=== PATIENT | male | born 1965 | race Caucasian/White ===

== ENCOUNTER 2017-01-04 13:23 | Emergency (ER) | payer MEDICARE, OTHER ==
[~2017-01-04] VITALS: Ht 180.3 cm; Wt 92.0 kg
[~2017-01-04 13:23] MED LIST: ARIP1TAB5 PO; OCUVTAB4 PO; TRAZ50TA12 PO
[2017-01-04 13:31] VITALS: BP 140/86; PULSE 81; RESP 16; TEMP 98.3; O2SAT 95
[2017-01-04] MEDS ORDERED: OCUVTAB4 PO (13:37)
[2017-01-04] MEDS ORDERED: AMBI5TAB PO (13:37)
[2017-01-04] MEDS ORDERED: TIMO0.2517 LEFT EYE (13:38)
[2017-01-04] MEDS ORDERED: PERI0.126 SWISH-SPIT (13:56)
--- NOTE | 2017-01-04 13:57 | PD ---
HPI Chief Complaint: Oral / Dental Pain or Problem Time Seen by Provider: 13:44 Travel History International Travel<30 days: No Contact w/Intl Traveler<30days: No Traveled to known affect area: No History of Present Illness HPI The patient is a 51-year-old male who presents to the emergency department with his brother for bruising of the tongue. The patient states he bit his tongue approximately one week ago while chewing. The patient is blind out of the left eye, has partial vision of the right eye, after cataract surgery in the 1960s. The patient states he bit his tongue on the left, anterior, and right aspect of the tongue one week ago. He continues have mild sensitivity to left lateral aspect of the tongue. The brother states there does appear to be bruising and possibly infection the left side of his tongue. He does note some sensitivity to certain foods with eating, but denies any fever. Symptoms are mild, exacerbated after he accidentally bit his tongue, and there are no current alleviating factors. PFSH Past Medical History Diminished Hearing: No Schizophrenia: Yes Tetanus Vaccination: Unknown Influenza Vaccination: No Past Surgical History Tonsillectomy: Yes Social History Alcohol Use: No Tobacco Use: No Substance Use: No Allergies-Medications (Allergen,Severity, Reaction): Coded Allergies: No Known Allergies (Unverified , 01/04/17) Reported Meds & Prescriptions Reported Meds & Active Scripts Active Abilify (Aripiprazole) 10 Mg Tab 10 Mg PO DAILY Reported Timolol Maleate (Timolol Maleate (Ophth)) 0.25 % Kimber 1 Drop LEFT EYE BID Ambien (Zolpidem Tartrate) 5 Mg Tab 5 Mg PO HS PRN Preservision Areds (Multiple Vitamins W/ Minerals) 1 Tab 1 Tab PO DAILY Review of Systems General / Constitutional: No: Fever Eyes: Positive: Blindness HENT: Positive: Other (as noted in the history of present illness) Neurologic: No: Seizures (no history of seizures) Hematologic/Lymphatic: Positive: Other (takes no anticoagulants), No: Easy Bruising Physical Exam Narrative GENERAL: Awake, alert, pleasant 51-year-old male who appears his stated age and is in no acute respiratory distress. SKIN: Focused skin assessment warm/dry. HEAD: Atraumatic. Normocephalic. EYES: Blind out of the left eye. Right pupil is irregular, he is able to see my hand at a distance of 2 feet. ENT: Hematoma/ecchymosis noted over the lateral aspect of the tongue on the left and right as well as anterior aspect. Mild irregularly to the left aspect of the tongue, but no acute bleeding. NECK: Trachea midline. No JVD. MUSCULOSKELETAL: No obvious deformities. No clubbing. No cyanosis. No edema. NEUROLOGICAL: Awake and alert. No obvious cranial nerve deficits. Motor grossly within normal limits. Normal speech. PSYCHIATRIC: Appropriate mood and affect; insight and judgment normal. Data Data Last Documented VS Vital Signs Date Time Temp Pulse Resp B/P Pulse Ox O2 Delivery O2 Flow Rate FiO2 01/04/17 13:31 98.3 81 16 140/86 95 MDM Medical Decision Making Medical Screen Exam Complete: Yes Emergency Medical Condition: Yes Medical Record Reviewed: Yes Differential Diagnosis Differential diagnosis includes laceration, hematoma, ecchymosis, hairy tongue, ulcer. Narrative Course The patient appears to have small hematomas and ecchymosis to the tongue, but does have some irregularity to left lateral tongue, therefore, the patient will be placed on Peridex. He is advised to follow-up with his primary physician and /or dentist if symptoms persist. Diagnosis Primary Impression: Tongue injury Qualified Code: S09.93XA - Injury of tongue, initial encounter Patient Instructions: General Instructions Additional Instructions: Peridex as directed. Follow-up with your primary physician and/or dentist. Diet as tolerated. Med/Other Pt SpecificInfo: Prescription(s) given Scripts Chlorhexidine Gluconate (Mouth) Liq (Peridex Liq)0.12% Soln15 Ml SWISH-SPIT BID #473 ML Ref 0 Prov:Sung Hawthorne MD 01/04/17 Disposition: 01 DISCHARGE HOME Condition: Stable Sung Hawthorne MD Jan 04, 2017 13:56
== END 2017-01-04 14:19 | disposition home or self-care (01) ==
LOC: PHED 13:23
DX: S00.532A Contusion of oral cavity, initial encounter (principal); X58.XXXA Exposure to other specified factors, initial encounter
CPT/HCPCS: 99283

== ENCOUNTER 2017-01-10 11:05 | Emergency (ER) | payer MEDICARE, MEDICAID ==
[~2017-01-10] VITALS: Ht 180.3 cm; Wt 90.0 kg
[~2017-01-10 11:05] MED LIST changes: +AMBI5TAB PO; +PERI0.126 SWISH-SPIT; +TIMO0.2517 LEFT EYE; -TRAZ50TA12 PO
[2017-01-10 11:09] VITALS: BP 137/83; PULSE 70; RESP 16; TEMP 98.3; O2SAT 97
--- NOTE | 2017-01-10 11:56 | PD ---
HPI Chief Complaint: ENT Complaint Time Seen by Provider: 11:53 Travel History International Travel<30 days: No Contact w/Intl Traveler<30days: No Traveled to known affect area: No History of Present Illness HPI 51-year-old male presents to the emergency room for evaluation of left ear pain for the past 2 days. Patient's mother applied [id number] ear cleaning solution yesterday without relief in symptoms. He has not taken anything for his pain. Denies drainage, fever, chills, nausea, vomiting, or other upper respiratory symptoms. History of schizophrenia and glaucoma but denies any other significant history. Denies any recent swimming. PFSH Past Medical History Diminished Hearing: No Immunizations Current: Yes Schizophrenia: Yes Tetanus Vaccination: > 5 Years Influenza Vaccination: No Past Surgical History Eye Surgery: Yes (cataracts removed) Tonsillectomy: Yes Social History Alcohol Use: No Tobacco Use: No Substance Use: No Allergies-Medications (Allergen,Severity, Reaction): Coded Allergies: No Known Allergies (Unverified , 01/10/17) Reported Meds & Prescriptions Reported Meds & Active Scripts Active Abilify (Aripiprazole) 10 Mg Tab 10 Mg PO DAILY Reported Timolol Maleate (Timolol Maleate (Ophth)) 0.25 % Kimber 1 Drop LEFT EYE BID Ambien (Zolpidem Tartrate) 5 Mg Tab 5 Mg PO HS PRN Preservision Areds (Multiple Vitamins W/ Minerals) 1 Tab 1 Tab PO DAILY Review of Systems Except as stated in HPI: all other systems reviewed are Neg Physical Exam Narrative GENERAL: Well-nourished, well-developed male in no acute distress. Afebrile. Ambulatory. Resting comfortably in bed. SKIN: Focused skin assessment warm/dry. HEAD: Normocephalic. EYES: No scleral icterus. No injection or drainage. NECK: Supple, trachea midline. No JVD or lymphadenopathy. EARS: Bilateral pinnae and external canals appear within normal limits. Bilateral tympanic membranes without erythema, dullness or perforation. CARDIOVASCULAR: Regular rate and rhythm without murmurs, gallops, or rubs. RESPIRATORY: Breath sounds equal bilaterally. No accessory muscle use. Data Data Last Documented VS Vital Signs Date Time Temp Pulse Resp B/P Pulse Ox O2 Delivery O2 Flow Rate FiO2 01/10/17 11:09 98.3 70 16 137/83 97 MDM Medical Decision Making Medical Screen Exam Complete: Yes Emergency Medical Condition: Yes Medical Record Reviewed: Yes Differential Diagnosis Otitis media, otitis externa, eustachian tube dysfunction Narrative Course 51-year-old male presents to the emergency room for evaluation of left ear pain for the past 2 days. Patient denies fever, drainage, or other upper respiratory symptoms. Physical exam is unremarkable. Bilateral ear canals and tympanic membranes are without evidence of acute infection. Patient was reassured and told to take osfs-rmo-dnclwqe antihistamines and intranasal medications for eustachian tube dysfunction. Told to take jksc-huu-evkdgko Tylenol and Motrin for pain. He will follow up with primary care physician or return for worsening symptoms. He understands and agrees to plan. Diagnosis Primary Impression: Eustachian tube dysfunction Qualified Code: H69.82 - Dysfunction of left eustachian tube Referrals: Primary Care Physician Patient Instructions: Eustachian Tube Dysfunction (GEN), General Instructions Additional Instructions: Rest and drink plenty of fluids. Take pnme-dlg-hdeulkf antihistamines and intranasal medications as directed. Take ibuprofen with food as directed, as needed for pain. Follow-up with a primary care physician. Return to the emergency room for worsening symptoms. Disposition: 01 DISCHARGE HOME Condition: Stable Sue Lujan Jan 10, 2017 11:56
== END 2017-01-10 12:20 | disposition home or self-care (01) ==
LOC: PHEFT 11:05
DX: H69.82 Other specified disorders of Eustachian tube, left ear (principal); Z86.59 Personal history of other mental and behavioral disorders; Z86.69 Personal history of other diseases of the nervous system and sense organs
CPT/HCPCS: 99282

== ENCOUNTER 2017-03-25 11:30 | Inpatient (IN) | payer MEDICARE, MEDICAID ==
[~2017-03-25] VITALS: Ht 182.9 cm; Wt 99.0 kg
[~2017-03-25 11:30] MED LIST changes: -PERI0.126 SWISH-SPIT
[2017-03-25 11:44] VITALS: BP 137/83; PULSE 103; RESP 18; O2SAT 98
[2017-03-25] MEDS ORDERED: SODIUM CHLORIDE 0.9% FLUSH 10 ML FLUSH IVF PRN (11:45)
--- NOTE | 2017-03-25 12:23 | RADRPT ---
EXAM DATE/TIME: 03/25/2017 12:02 [facility] COMPARISON: No previous studies available for comparison. INDICATIONS : New onset seizure. Head trauma. RADIATION DOSE: 56.35 CTDIvol (mGy) MEDICAL HISTORY : None SURGICAL HISTORY : None. ENCOUNTER: Initial ACUITY: 1 day PAIN SCALE: 4/10 LOCATION: cranial TECHNIQUE: Multiple contiguous axial images were obtained of the head. Using automated exposure control and adj ustment of the mA and/or kV according to patient size, radiation dose was kept as low as reasonably a chievable to obtain optimal diagnostic quality images. DICOM format image data is available electro nically for review and comparison. FINDINGS: CEREBRUM: The ventricles are normal for age. No evidence of midline shift, mass lesion, hemorrhage or acute in farction. No extra-axial fluid collections are seen. POSTERIOR FOSSA: The cerebellum and brainstem are intact. The 4th ventricle is midline. The cerebellopontine angle i s unremarkable. EXTRACRANIAL: The visualized portion of the orbits is intact. 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 SKULL: The calvaria is intact. No evidence of skull fracture. CONCLUSION: Unremarkable noncontrast exam. Derik Prabhakar MD on March 25, 2017 at 12:20 Board Certified Radiologist. This report was verified electronically.
--- NOTE | 2017-03-25 12:32 | PD ---
HPI Chief Complaint: Seizure Time Seen by Provider: 11:40 Travel History International Travel<30 days: No Contact w/Intl Traveler<30days: No Traveled to known affect area: No History of Present Illness HPI This is a 52-year-old male with history of schizophrenia, legal blindness, who presents from the [facility] after having a seizure. The patient is unable to give any history. The patient has no known seizure disorder. Family friend is at the bedside states that he takes Abilify and Ambien. There was concern that he may have switched the 2 medications. The patient was reportedly having tonic-clonic seizures prior to the EMS arrival. When EMS arrived, they found the patient to be postictal. He had had urinary incontinence and possibly stool incontinence. The patient was unable to answer questions and appeared to be still postictal. PFSH Past Medical History Diminished Hearing: No Insomnia: Yes Immunizations Current: Yes Schizophrenia: Yes Past Surgical History Eye Surgery: Yes (cataracts removed, blind ) Tonsillectomy: Yes Social History Alcohol Use: No Tobacco Use: No Substance Use: No Allergies-Medications (Allergen,Severity, Reaction): Coded Allergies: No Known Allergies (Unverified , 01/10/17) Reported Meds & Prescriptions Reported Meds & Active Scripts Active Abilify (Aripiprazole) 10 Mg Tab 10 Mg PO DAILY Reported Timolol Maleate (Timolol Maleate (Ophth)) 0.25 % Kimber 1 Drop LEFT EYE BID Ambien (Zolpidem Tartrate) 5 Mg Tab 5 Mg PO HS PRN Preservision Areds (Multiple Vitamins W/ Minerals) 1 Tab 1 Tab PO DAILY Review of Systems ROS Limitations: Clinical Condition, Altered Mental Status Except as stated in HPI: all other systems reviewed are Neg HENT: Positive: Other (reported legally blind) Neurologic: Positive: Seizures (reported) Physical Exam Narrative GENERAL: Well-developed well-nourished male in no acute respiratory distress. The patient was postictal and mildly combative. SKIN: Focused skin assessment warm/dry. HEAD: Normocephalic. Patient has a stellate laceration to his mid forehead. There is no active bleeding at the time my examination. EYES: No scleral icterus. No injection or drainage. ENT: No nasal bleeding or discharge. Mucous membranes pink and moist. NECK: Trachea midline. Supple. CARDIOVASCULAR: Regular rate and rhythm. No murmur appreciated. RESPIRATORY: No accessory muscle use. Clear to auscultation. Breath sounds equal bilaterally. GASTROINTESTINAL: Abdomen soft, non-tender, nondistended. Hepatic and splenic margins not palpable. MUSCULOSKELETAL: No obvious deformities. No clubbing. No cyanosis. No edema. NEUROLOGICAL: Awake and postictal. No obvious cranial nerve deficits. Motor grossly within normal limits. Data Data Last Documented VS Vital Signs Date Time Temp Pulse Resp B/P (MAP) Pulse Ox O2 Delivery O2 Flow Rate FiO2 03/25/17 13:40 98.7 76 16 140/83 (102) 96 Room Air 03/25/17 13:36 21 Orders Orders Complete Blood Count With Diff (03/25/17 11:41) Electrocardiogram (03/25/17 ) Ct Brain W/O Iv Contrast(Rout) (03/25/17 ) Blood Glucose (03/25/17 11:41) Ecg Monitoring (03/25/17 11:41) Iv Access Insert/Monitor (03/25/17 11:41) Oximetry (03/25/17 11:41) Comprehensive Metabolic Panel (03/25/17 11:41) Sodium Chloride 0.9% Flush (Ns Flush) (03/25/17 11:45) Ct Cerv Spine W/O Contrast (03/25/17 11:41) Lidocai-Epi 2%-1:100,000 Inj (Xylocaine- (03/25/17 12:45) Admit To Inpatient (03/25/17 ) Vital Signs (Adult) Q4H (03/25/17 13:28) Neuro Checks Q4H (03/25/17 13:28) Activity Bed Rest (03/25/17 13:28) Ediphone Operator / Telemetry .CONTINUOUS (03/25/17 13:28) Diet Regular Basic (03/25/17 Lunch) Sodium Chloride 0.9% Flush (Ns Flush) (03/25/17 21:00) Acetaminophen (Tylenol) (03/25/17 13:30) Ondansetron Inj (Zofran Inj) (03/25/17 13:30) Basic Metabolic Panel (Bmp) (03/26/17 06:00) Complete Blood Count With Diff (03/26/17 06:00) Resp Oxygen Corey C Titrat 1-4 L (03/25/17 ) Pt Request For Service (03/25/17 13:28) Scd Bilateral/Knee High DAYANA.BID (03/25/17 13:28) Xavier Bilateral/Knee High DAYANA.QSHIFT (03/25/17 13:28) Naloxone Inj (Narcan Inj) (03/25/17 13:30) Docusate Sodium-Senna (Lizbeth-Colace) (03/25/17 21:00) Magnesium Hydroxide Liq (Milk Of Magnesi (03/25/17 13:30) Sennosides (Senokot) (03/25/17 13:30) Bisacodyl Supp (Dulcolax Supp) (03/25/17 13:30) Lactulose Liq (Lactulose Liq) (03/25/17 13:30) Inpatient Certification (03/25/17 ) ^ Seizure Precautions (03/25/17 13:28) Consult Neurology (03/25/17 ) (Hub Use Only)Inp Phy Cons/Ref (03/25/17 ) Admit Order (Ed Use Only) (03/25/17 14:06) Labs Laboratory Tests Test 03/25/17 12:00 White Blood Count 19.1 TH/MM3 Red Blood Count 5.18 MIL/MM3 Hemoglobin 15.2 GM/DL Hematocrit 44.5 % Mean Corpuscular Volume 85.9 FL Mean Corpuscular Hemoglobin 29.2 PG Mean Corpuscular Hemoglobin Concent 34.0 % Red Cell Distribution Width 13.9 % Platelet Count 178 TH/MM3 Mean Platelet Volume 8.4 FL Neutrophils (%) (Auto) 85.0 % Lymphocytes (%) (Auto) 9.0 % Monocytes (%) (Auto) 5.7 % Eosinophils (%) (Auto) 0.2 % Basophils (%) (Auto) 0.1 % Neutrophils # (Auto) 16.3 TH/MM3 Lymphocytes # (Auto) 1.7 TH/MM3 Monocytes # (Auto) 1.1 TH/MM3 Eosinophils # (Auto) 0.0 TH/MM3 Basophils # (Auto) 0.0 TH/MM3 CBC Comment DIFF FINAL Differential Comment Blood Urea Nitrogen 8 MG/DL Creatinine 0.97 MG/DL Random Glucose 126 MG/DL Total Protein 7.1 GM/DL Albumin 4.0 GM/DL Calcium Level 8.6 MG/DL Alkaline Phosphatase 133 U/L Aspartate Amino Transf (AST/SGOT) 22 U/L Alanine Aminotransferase (ALT/SGPT) 33 U/L Total Bilirubin 0.6 MG/DL Sodium Level 134 MEQ/L Potassium Level 3.3 MEQ/L Chloride Level 99 MEQ/L Carbon Dioxide Level 20.9 MEQ/L Anion Gap 14 MEQ/L Estimat Glomerular Filtration Rate 81 ML/MIN MDM Medical Decision Making Medical Screen Exam Complete: Yes Emergency Medical Condition: Yes Differential Diagnosis Seizure versus syncope versus metabolic derangement Narrative Course 52-year-old male who has a history of schizophrenia, legally blind, presents after having a witnessed tonic-clonic activity at the [facility]. The patient is unable to give history. He was postictal when he arrived. Patient has a laceration to his mid forehead. This is been closed by GRACIE Moon. The patient had another witnessed tonic-clonic seizure while in the department just before he was leaving to go to special procedures. He was medicated with [address] IV[address] Dr[address] Navarrete, neurologist, was made aware of the seizure. He recommended we load the patient with 1 g of Keppra. This was passed on to the admitting physician, Dr. Jacky Morrison as the patient had left the department prior to this information. Diagnosis Primary Impression: New onset seizure Additional Impressions: Forehead laceration Qualified Codes: S01.81XD - Laceration without foreign body of other part of head, subsequent encounter Closed head injury Qualified Codes: S09.90XD - Unspecified injury of head, subsequent encounter Legally blind schizophrenia by history Admitting Information Admitting Physician Requests: Admit Scripts Nngqmxcr-Dxpupyhnteoancj-Jnswdfdet Liq (Magic Mouthwash Adult Liq) 120 Ml Susp 10 ML SWISH-SWAL ACHS for Mouth sores, #120 ML 0 Refills Each 5mL contains: Nystatin 200,000units, Diphenhydramine 4.25mg, Viscous Lidocaine 10mg, Go syrup 0.8 mL Prov: Bailey Giraldo 03/27/17 Chlorhexidine Gluconate (Mouth) Liq (Peridex Liq) 0.12% Soln 15 ML SWISH-SPIT BID for Infection, #473 ML 0 Refills Prov: Bailey Giraldo 03/27/17 Levetiracetam (Keppra) 500 Mg Tab 500 MG PO Q12HR for Seizure Control for 30 Days, #60 TAB Prov: Bailey Giraldo 03/27/17 Uriah Elizabeth MD Mar 25, 2017 12:32
--- NOTE | 2017-03-25 12:35 | RADRPT ---
EXAM DATE/TIME: 03/25/2017 12:02 [facility] COMPARISON: No previous studies available for comparison. INDICATIONS : Trauma, seizure today. RADIATION DOSE: 37.75 CTDIvol (mGy) MEDICAL HISTORY : None SURGICAL HISTORY : Tonsillectomy. ENCOUNTER: Initial ACUITY: 1 day PAIN SCALE: 4/10 LOCATION: neck TECHNIQUE: Volumetric scanning of the cervical spine was performed. Multiplanar reconstructions i n the sagittal, coronal and oblique axial planes were performed. Using automated exposure control a nd adjustment of the mA and/or kV according to patient size, radiation dose was kept as low as reason ably achievable to obtain optimal diagnostic quality images. DICOM format image data is available e lectronically for review and comparison. FINDINGS: The sagittal reconstructions demonstrate normal alignment and normal prevertebral soft tissues. The d ens is intact and there is a normal atlantoaxial relationship. Degenerative disc changes are present at the C6-7 level. The axial images demonstrate that the vertebral bodies and posterior elements are intact. The soft ti ssues are within normal limits. There is no evidence of acute fracture or malalignment. CONCLUSION: Negative trauma CT. Derik Prabhakar MD on March 25, 2017 at 12:32 Board Certified Radiologist. This report was verified electronically.
[2017-03-25 12:43] LABS: AUTOMATED NEUTROPHIL # 16.3 TH/MM3 (1.8-7.7); BASOPHIL % 0.1 % (0.0-2.0); EOSINOPHIL % 0.2 % (0.0-4.0); HEMATOCRIT 44.5 % (39.0-51.0); HEMO FLAGS DIFF FINAL; LYMPHOCYTE # 1.7 TH/MM3 (1.0-4.8); MEAN CELL VOLUME 85.9 FL (80.0-100.0); MEAN CORPUSCULAR HEMOGLOBIN 29.2 PG (27.0-34.0); MONO % 5.7 % (0.0-8.0); PLATELET COUNT 178 TH/MM3 (150-450); RED BLOOD COUNT 5.18 MIL/MM3 (4.50-5.90); RED CELL DISTRIBUTION WIDTH 13.9 % (11.6-17.2); WHITE BLOOD COUNT 19.1 TH/MM3 (4.0-11.0)
[2017-03-25] MEDS ORDERED: LIDOCAINE 2%/EPINEPHrine 1:100,000 20ML MDV NERV BLOCK ONE (12:45)
[2017-03-25 13:02] LABS: ALT (GPT) 33 U/L (12-78); ANION GAP 14 MEQ/L (5-15); AST (GOT) 22 U/L (15-37); BICARBONATE 20.9 MEQ/L (21.0-32.0); BLOOD UREA NITROGEN 8 MG/DL (7-18); CHLORIDE 99 MEQ/L (98-107); GLOMERULAR FILTRATION RATE 81 ML/MIN (>89); POTASSIUM 3.3 MEQ/L (3.5-5.1); SODIUM (NA) 134 MEQ/L (136-145)
[2017-03-25 13:04] LABS: ALKALINE PHOSPHATASE 133 U/L (45-117); TOTAL BILIRUBIN ADULT 0.6 MG/DL (0.2-1.0)
--- NOTE | 2017-03-25 13:26 | PD ---
Physical Exam Narrative I was asked by Dr. Elizabeth to repair patient's laceration. Please see his documentation for full H&P. Data Data Last Documented VS Vital Signs Date Time Temp Pulse Resp B/P (MAP) Pulse Ox O2 Delivery O2 Flow Rate FiO2 03/25/17 11:47 104 03/25/17 11:46 (101) Room Air 03/25/17 11:44 18 98 Orders Orders Complete Blood Count With Diff (03/25/17 11:41) Electrocardiogram (03/25/17 ) Ct Brain W/O Iv Contrast(Rout) (03/25/17 ) Blood Glucose (03/25/17 11:41) Ecg Monitoring (03/25/17 11:41) Iv Access Insert/Monitor (03/25/17 11:41) Oximetry (03/25/17 11:41) Comprehensive Metabolic Panel (03/25/17 11:41) Sodium Chloride 0.9% Flush (Ns Flush) (03/25/17 11:45) Ct Cerv Spine W/O Contrast (03/25/17 11:41) Lidocai-Epi 2%-1:100,000 Inj (Xylocaine- (03/25/17 12:45) Labs Laboratory Tests Test 03/25/17 12:00 White Blood Count 19.1 TH/MM3 Red Blood Count 5.18 MIL/MM3 Hemoglobin 15.2 GM/DL Hematocrit 44.5 % Mean Corpuscular Volume 85.9 FL Mean Corpuscular Hemoglobin 29.2 PG Mean Corpuscular Hemoglobin Concent 34.0 % Red Cell Distribution Width 13.9 % Platelet Count 178 TH/MM3 Mean Platelet Volume 8.4 FL Neutrophils (%) (Auto) 85.0 % Lymphocytes (%) (Auto) 9.0 % Monocytes (%) (Auto) 5.7 % Eosinophils (%) (Auto) 0.2 % Basophils (%) (Auto) 0.1 % Neutrophils # (Auto) 16.3 TH/MM3 Lymphocytes # (Auto) 1.7 TH/MM3 Monocytes # (Auto) 1.1 TH/MM3 Eosinophils # (Auto) 0.0 TH/MM3 Basophils # (Auto) 0.0 TH/MM3 CBC Comment DIFF FINAL Differential Comment Blood Urea Nitrogen 8 MG/DL Creatinine 0.97 MG/DL Random Glucose 126 MG/DL Total Protein 7.1 GM/DL Albumin 4.0 GM/DL Calcium Level 8.6 MG/DL Alkaline Phosphatase 133 U/L Aspartate Amino Transf (AST/SGOT) 22 U/L Alanine Aminotransferase (ALT/SGPT) 33 U/L Total Bilirubin 0.6 MG/DL Sodium Level 134 MEQ/L Potassium Level 3.3 MEQ/L Chloride Level 99 MEQ/L Carbon Dioxide Level 20.9 MEQ/L Anion Gap 14 MEQ/L Estimat Glomerular Filtration Rate 81 ML/MIN MDM Supervised Visit with SEAN: No Procedures Procedure Narrative LACERATION REPAIR LOCATION: Forehead LENGTH: Approximately 5.5 cm in total length Y-shaped NUMBER OF STITCHES/MIGUELINA: 11 simple interrupted REPAIR: Verbal consent was obtained. The area of the laceration was cleaned and prepped. The laceration was infiltrated with lidocaine with epi. The wound was copiously irrigated and explored without evidence of foreign body, bony involvement, periosteum injury, or neurovascular injury. The wound was closed using 5-0 Vicryl. This was a single layer repair. The patient was advised to keep the affected area as clean and dry as possible using soap and water. There were no complications. Patient tolerated the procedure well. Woody Dukes Mar 25, 2017 13:26
[2017-03-25] MEDS ORDERED: NALOXONE HCL 0.4 MG/ML AMP IV PUSH PRN (13:30)
[2017-03-25] MEDS ORDERED: BISACODYL 10 MG SUPP RECTAL PRN (13:30)
[2017-03-25] MEDS ORDERED: SENNOSIDES 8.6 MG TAB PO PRN (13:30)
[2017-03-25] MEDS ORDERED: MAGNESIUM HYDROXIDE SUSP 30 ML CUP PO PRN (13:30)
[2017-03-25] MEDS ORDERED: LACTULOSE SYRUP 20 GM/30 ML CUP PO PRN (13:30)
[2017-03-25] MEDS ORDERED: ACETAMINOPHEN 325 MG TAB PO PRN (13:30)
[2017-03-25] MEDS ORDERED: ONDANSETRON HCL 4 MG/2 ML VIAL IVP PRN (13:30)
[2017-03-25] MEDS ORDERED: SODIUM CHLORIDE 0.9% FLUSH 10 ML FLUSH IV FLUSH PRN (13:30)
[2017-03-25 13:36] VITALS: O2SAT 96
[2017-03-25 13:40] VITALS: BP 140/83; PULSE 76; RESP 16; TEMP 98.7; O2SAT 96
--- NOTE | 2017-03-25 14:18 | HHI.HP ---
HPI Service [facility] Hospitalists Primary Care Physician Amanda Almeida, DO Admission Diagnosis new onset seizure, forehead laceration, schizophrenia, legally blind Diagnoses: Chief Complaint: New onset seizure Travel History International Travel<30 Days: No Contact w/Intl Traveler <30 Da: No Traveled to Known Affected Are: No History of Present Illness Written by Bailey Giraldo, acting as scribe for Dr. Morrison on 03/25/17 at 14:14. This is a 52-year-old with a past medical history significant for glaucoma, macular degeneration, legal blindness and schizophrenia who presents to [facility] ED after having a seizure. Patient has no previous history of seizure disorder. Reportedly, patient was participating in a blind class when he had a tonic-clonic seizure injuring his head as well as biting his tongue. When the EMS arrived, patient was found to be post ictal. He had urinary incontinence and possible stool incontinence. At present, patient's only complaint is being tired. He reports being completely blind in the left eye with some vision in the right. He denies any recent illness. He denies any fever or chills. Denies any chest pain or shortness of breath. He denies any nausea, vomiting or abdominal pain. He denies any urinary difficulties, diarrhea or constipation. Patient takes Abilify and Ambien at home. Family member at the bedside is concerned the patient may have inadvertently taken his Ambien this morning in place of his Abilify. Review of Systems Except as stated in HPI: all other systems reviewed are Neg Past Family Social History Past Medical History Glaucoma Macular degeneration Legally blind Schizophrenia Past Surgical History Retinal surgery Reported Medications Abilify (Aripiprazole) 10 Mg Tab 10 Mg PO DAILY Timolol Maleate (Timolol Maleate (Ophth)) 0.25 % Kimber 1 Drop LEFT EYE BID Ambien (Zolpidem Tartrate) 5 Mg Tab 5 Mg PO HS PRN Preservision Areds (Multiple Vitamins W/ Minerals) 1 Tab 1 Tab PO DAILY Allergies: Coded Allergies: No Known Allergies (Unverified , 01/10/17) Active Ordered Medications Current Medications Medications (Trade) Dose Ordered Sig/Hayley Route Start Time Stop Time Status Last Admin (NS Flush) 2 ml UNSCH PRN IVF 03/25/17 11:45 03/25/17 12:25 (NS Flush) 2 ml BID IV FLUSH 03/25/17 21:00 (Tylenol) 650 mg Q4H PRN PO 03/25/17 13:30 (Zofran Inj) 4 mg Q6H PRN IVP 03/25/17 13:30 (Narcan Inj) 0.4 mg UNSCH PRN IV PUSH 03/25/17 13:30 (Lizbeth-Colace) 1 tab BID PO 03/25/17 21:00 (Milk Of Magnesia Liq) 30 ml Q12H PRN PO 03/25/17 13:30 (Senokot) 17.2 mg Q12H PRN PO 03/25/17 13:30 (Dulcolax Supp) 10 mg DAILY PRN RECTAL 03/25/17 13:30 (Lactulose Liq) 30 ml DAILY PRN PO 03/25/17 13:30 Family History Macular degeneration, Mother Social History Patient denies any tobacco use, EtOH consumption or illicit drug use. Physical Exam Vital Signs Vital Signs Date Time Temp Pulse Resp B/P (MAP) Pulse Ox O2 Delivery O2 Flow Rate FiO2 03/25/17 13:40 76 16 140/83 (102) 96 Room Air 03/25/17 13:36 96 21 03/25/17 11:47 104 03/25/17 11:46 (101) Room Air 03/25/17 11:44 103 18 137/83 (101) 98 Room Air Physical Exam GENERAL: This is a well-nourished, well-developed patient, in no apparent distress. SKIN: No rashes, ecchymoses or lesions. Cool and dry. HEAD: Normocephalic. (+)closed laceration over anterior forehead with sutures intact, surrounding ecchymosis. Nasal contusion noted. EYES: Pupils equal round and reactive. Extraocular motions intact. No scleral icterus. No injection or drainage. ENT: Nose without bleeding, purulent drainage or septal hematoma. Throat without erythema, tonsillar hypertrophy or exudate. Uvula midline. (+)tongue contusion, no active bleeding. Airway patent. NECK: Trachea midline. No lymphadenopathy. Supple, nontender, no meningeal signs. CARDIOVASCULAR: Regular rate and rhythm without murmurs, gallops, or rubs. RESPIRATORY: Clear to auscultation. Breath sounds equal bilaterally. No wheezes , rales, or rhonchi. GASTROINTESTINAL: Abdomen soft, non-tender, nondistended. No hepato-splenomegaly , or palpable masses. No guarding. MUSCULOSKELETAL: Extremities without clubbing, cyanosis, or edema. No joint tenderness, effusion, or edema noted. No calf tenderness. NEUROLOGICAL: Awake and alert. Able to move all extremities. Nonfocal. Normal speech. Laboratory Laboratory Tests Test 03/25/17 12:00 White Blood Count 19.1 Red Blood Count 5.18 Hemoglobin 15.2 Hematocrit 44.5 Mean Corpuscular Volume 85.9 Mean Corpuscular Hemoglobin 29.2 Mean Corpuscular Hemoglobin Concent 34.0 Red Cell Distribution Width 13.9 Platelet Count 178 Mean Platelet Volume 8.4 Neutrophils (%) (Auto) 85.0 Lymphocytes (%) (Auto) 9.0 Monocytes (%) (Auto) 5.7 Eosinophils (%) (Auto) 0.2 Basophils (%) (Auto) 0.1 Neutrophils # (Auto) 16.3 Lymphocytes # (Auto) 1.7 Monocytes # (Auto) 1.1 Eosinophils # (Auto) 0.0 Basophils # (Auto) 0.0 CBC Comment DIFF FINAL Differential Comment Blood Urea Nitrogen 8 Creatinine 0.97 Random Glucose 126 Total Protein 7.1 Albumin 4.0 Calcium Level 8.6 Alkaline Phosphatase 133 Aspartate Amino Transf (AST/SGOT) 22 Alanine Aminotransferase (ALT/SGPT) 33 Total Bilirubin 0.6 Sodium Level 134 Potassium Level 3.3 Chloride Level 99 Carbon Dioxide Level 20.9 Anion Gap 14 Estimat Glomerular Filtration Rate 81 Result Diagram: 03/25/17 1200 03/25/17 1200 Imaging Last Impressions Cervical Spine CT 03/25/17 1141 Signed Impressions: Service Date/Time: February 12:02 - CONCLUSION: Negative trauma CT. Derik Prabhakar MD Head CT 03/25/17 0000 Signed Impressions: Service Date/Time: February 12:02 - CONCLUSION: Unremarkable noncontrast exam. MD Roxanna Gutierres VTE Risk Assessment Caprini VTE Risk Assessment: No/Low Risk (score <= 1) Caprini Risk Assessment Model Point Value = 1 Point Value = 2 Point Value = 3 Point Value = 5 Age 41-60 Minor surgery BMI > 25 kg/m2 Swollen legs Varicose veins or History of unexplained or recurrent spontaneous Oral contraceptives or hormone replacement Sepsis (< 1 month) Serious lung disease, including pneumonia (< 1 month) Abnormal pulmonary function Acute myocardial infarction Congestive heart failure (< 1 month) History of inflammatory bowel disease Medical patient at bed rest Age 61-74 Arthroscopic surgery Major open surgery (> 45 min) Laparoscopic surgery (> 45 min) Malignancy Confined to bed (> 72 hours) Immobilizing plaster cast Central venous access Age >= 75 History of VTE Family history of VTE Factor V Leiden Prothrombin [id number] Lupus anticoagulant Anticardiolipin antibodies Elevated serum homocysteine Heparin-induced thrombocytopenia Other congenital or acquired thrombophilia Stroke (< 1 month) Elective arthroplasty Hip, pelvis, or leg fracture Acute spinal cord injury (< 1 month) Prophylaxis Regimen Total Risk Factor Score Risk Level Prophylaxis Regimen 0-1 Low Early ambulation 2 Moderate Order ONE of the following: *Sequential Compression Device (SCD) *Heparin 5000 units SQ BID 3-4 Higher Order ONE of the following medications: *Heparin 5000 units SQ TID *Enoxaparin/Lovenox 40 mg SQ daily (WT < 150 kg, CrCl > 30 mL/min) *Enoxaparin/Lovenox 30 mg SQ daily (WT < 150 kg, CrCl > 10-29 mL/min) *Enoxaparin/Lovenox 30 mg SQ BID (WT < 150 kg, CrCl > 30 mL/min) AND/OR *Sequential Compression Device (SCD) 5 or more Highest Order ONE of the following medications: *Heparin 5000 units SQ TID (Preferred with Epidurals) *Enoxaparin/Lovenox 40 mg SQ daily (WT < 150 kg, CrCl > 30 mL/min) *Enoxaparin/Lovenox 30 mg SQ daily (WT < 150 kg, CrCl > 10-29 mL/min) *Enoxaparin/Lovenox 30 mg SQ BID (WT < 150 kg, CrCl > 30 mL/min) AND *Sequential Compression Device (SCD) Assessment and Plan Assessment and Plan 52-year-old with a past medical history significant for glaucoma, macular degeneration, legal blindness and schizophrenia who presents to [facility] ED after having a seizure. New-onset seizure - CT of the head personally reviewed and unremarkable - Consult neurology - LP as requested by Dr. Navarrete. Follow-up on fluid analysis. - Continuous cardiac monitoring - Bedrest - Neuro checks every 4 - EEG - Seizure precautions - Fall precautions - Hold home dose of Abilify and Ambien for now Forehead laceration s/p closed head trauma - CT of the cervical spine personally reviewed and unremarkable - Status post suturing with absorbable sutures - Monitor wound healing Leukocytosis - Uncertain etiology, possibly reactive - Follow-up on LP fluid studies - monitor Hypokalemia - Mild - Replete - A.m. labs to monitor response Legal blindness Glaucoma Macular degeneration - Stable - Resume home eyedrops Schizophrenia - Hold home dose of Ambien and Abilify for now DVT prophylaxis - bilateral SCD/SELENA hose This note was transcribed by ninoska Giraldo. I, Dr. Jacky Morrison personally performed the history, physical exam, and medical decision making; and confirmed the accuracy of the information in the transcribed note. Authenticated by Dr. Jacky Morrison on 03/25/17 at 14:49. Discussed Condition With Patient, family members, ED physician Physician Certification 2 Midnight Certification Type: Admission for Inpatient Services Order for Inpatient Services The services are ordered in accordance with Medicare regulations or non- Medicare payer requirements, as applicable. In the case of services not specified as inpatient-only, they are appropriately provided as inpatient services in accordance with the 2-midnight benchmark. Estimated LOS (days): 3 3 days is the estimated time the patient will need to remain in the hospital, assuming treatment plan goals are met and no additional complications. Post-Hospital Plan: Not yet determined Bailey Giraldo Mar 25, 2017 14:18 Jacky Morrison MD Mar 25, 2017 14:49
[2017-03-25] MEDS: NS + KCL 20 MEQ INJ 1,000 ML IV SCH (15:38)
[2017-03-25 16:02] LABS: PROTHROMBIN TIME - PATIENT 10.7 SEC (9.8-11.6)
[2017-03-25] MEDS ORDERED: LORazepam 2 MG/ML VIAL ONE (16:04)
[2017-03-25] MEDS ORDERED: LORazepam 2 MG/ML VIAL IV PUSH ONE (16:30)
--- NOTE | 2017-03-25 16:32 | MG ---
cc: FRANDY GREENE M.D. Lab No: [id number] Date: 03/25/2017 Age: 52 Sex: M Race: DATE OF : [address] Morrison. In room E54, awake, drowsy, asleep study with photic only. CT was negative. Admitted with tonic-clonic seizure prior to EMS arrival, postictal, possible incontinence. History of schizophrenia, insomnia, on Ambien, Abilify and Timelol. DESCRIPTION OF RECORD The patient has a 3-4 Hz background. Noted to be snoring, some myogenic artifact as well. Do not appreciate any epileptic activity. Some wiggling of the feet but there is no correlation with any epileptiform features during that portion. Photic stimulation with a mild driving response. IMPRESSION Mild to moderate background slowing consistent with encephalopathic process without any epileptiform features. Clinical correlation. MD ROLANDO Medina/DARY /3:44 PM /4:23 PM
[2017-03-25 16:35] VITALS: BP 162/86
--- NOTE | 2017-03-25 17:04 | MB ---
cc: KIM MUIR MD DATE OF CONSULTATION 03/25/17 REASON FOR CONSULTATION Seizure. HISTORY OF PRESENT ILLNESS Mr. Yu is a 52-year-old male with past medical history of schizophrenia, legally blind who presented to the [facility] emergency room because of a witnessed seizure. He was witnessed to have tonic -clonic seizures, when he arrived to the emergency room at [facility], he was in a postictal confusional state with double incontinence. During the evaluation, mother and two family members were at the bedside.The patient states that the last thing he remembers he was in blind school. He denies any headache, blurred vision, racing heart prior to the episode. He has no recollection from that time until after he woke up in the hospital. He denies any contact with the sick or any recent febrile of illness. He takes Abilify and Ambien. PAST MEDICAL HISTORY 1. Schizophrenia 2. Insomnia 3. Blindness. PAST SURGICAL HISTORY 1. Cataract 2. Tonsillectomy SOCIAL HISTORY Denies alcohol, tobacco or illicit drug abuse. ALLERGIES No known allergies. MEDICATIONS 1. Timolol 2. Ambien. 3. Abilify REVIEW OF SYSTEMS A 12-point review of systems was negative except for what is stated in the HPI. PHYSICAL EXAMINATION GENERAL: Awake, alert, oriented, good historian in mild distress HEENT: Bilateral nystagmus/surgical pupil, finger count/light perception on the right. Intact hearing. No signs of meningeal irritation. Forehead laceration s/p fall CHEST: Clear to auscultation. No wheezes. ABDOMEN: Soft, nontender EXTREMITIES:No edema. Hands bilateral questionable cyanosis and clubbing in fingers. NEUROLOGIC: Awake, alert, oriented to time, person and place. No dysarthria, no dysphagia. Bilateral horizontal nystagmus. Right pupil surgical. Light perception. No facial asymmetry. Laceration of the forehead. Upper and lower extremities 5/5. No abnormal movements. Normal cerebellar function, intact sensation Reflexes 2+ bilateral symmetrical. Plantars are bilaterally downgoing. PSYCHIATRIC: Cooperative. No hallucinations. LABORATORY DATA WBC 19.1, hemoglobin 15.2, platelet count 178, 85% neutrophilia. Sodium 134, potassium 3.3, carbon dioxide 20.9, BUN 0.79 elevated GFR 8.1, glucose 126, ALK Ph 133. IMAGING STUDIES - Head CT scan unremarkable for an acute intracranial abnormality. IMPRESSION AND PLAN 1. New onset seizure 2. History of schizophrenia. 3. Legally blind - Clinical Counseling: A lengthy discussion with the family was conducted , I explained to the mother and the family member that the patient needs to have lumbar puncture performed to rule out the possibility of encephalitis given the elevated white blood cells even though it can be secondary to the seizure; to give the patient the benefit of the doubt with the low grade fever warm body and first seizure, negative CT scan. The patient and family PLAN: - Neuro checks q. one hourly - Seizure precautions - Keppra 750bid - Lumbar puncture, chemistry, protein, glucose, cytology. Viral and bacterial culture studies. 9. Continue medical supportive therapy, replenish electrolytes 10. DVT prophylaxis. 11. GI prophylaxis. 12. Continue home medications. 13. The case is discussed with the emergency physician, Dr. Uriah Elizabeth. Thank you for the opportunity to participate in the care of your patient. MD NAYELY Catalan/ /2:34 PM /4:46 PM LILI
--- NOTE | 2017-03-25 17:16 | PD.RAD ---
Post Procedure Progress Note Pre Procedure Diagnosis: (1) Seizure Post Procedure Diagnosis: (1) Seizure Procedure Date: Mar 25, 2017 Supervising Radiologist: Burak Pyle Estimated blood loss: none Anesthesia: Local, Conscious Sedation Plan of Activity Patient to Unit: ROPU Patient Condition: Poor Additional Comments: LP completed without difficulty. Opening pressure 13 17cc of clear CSF collected. See PACS Report for procedural detail/treatment Burak yPle MD Mar 25, 2017 17:15
[2017-03-25 17:30] VITALS: BP 127/75; PULSE 98; RESP 18; TEMP 99.3; O2SAT 100
--- NOTE | 2017-03-25 17:42 | RADRPT ---
EXAM DATE/TIME: 03/25/2017 16:54 [facility] COMPARISON: No previous studies available for comparison. INDICATIONS : Patient with recent seizure in need of lumbar puncture with opening pressures. MEDICAL HISTORY : 1.Seizures 2.Glaucoma 3.Macular degeneration 4.Legally blind 5.Schizophrenia SURGICAL HISTORY : 1.Retinal surgery ENCOUNTER: Initial ACUITY: 1 day PAIN SCORE: Non-responsive LUMBAR PUNCTURE TIME: 1707 hours FLUORO TIME: 0.5 minutes IMAGE SERIES: 1 ACCESS LEVEL: L4-5 OPENING PRESSURE: 12 cm of water CLOSING PRESSURE: Not requested. FLUID: 17 cc of clear CSF was collected and sent to the laboratory for analysis. PROCEDURE : 1. Fluoroscopic guided lumbar puncture. 2. Recording of opening pressure. The risks, benefits and alternatives to the procedure were explained and verbal and written consent w as obtained. The site was prepped in sterile fashion. Full sterile technique was used, including ca p, mask, sterile gloves and gown and a large sterile sheet. Hand hygiene and 2% chlorhexidine and/or betadine/alcohol prep was utilized per protocol for cutaneous antisepsis. The skin and subcutaneous tissues were infiltrated with local anesthetic solution. With fluoroscopic guidance the lumbar thecal sac was punctured at the L4/L5 level and the opening pre ssure was recorded. The above described fluid was removed without difficulty. The patient tolerated the procedure well and there were no complications. CONCLUSION: Uncomplicated fluoroscopically guided lumbar puncture with pressures as above. Burak Pyle MD on March 25, 2017 at 17:40 Board Certified Radiologist. This report was verified electronically.
[2017-03-25] MEDS: levETIRAcetam 1000 MG INJ 100 ML IV ONE ×2 (18:08→18:09)
[2017-03-25 19:04] LABS: GROSS BLOOD TUBE #1 0 (0); GROSS BLOOD TUBE #2 0 (0); GROSS BLOOD TUBE #3 0 (0); GROSS BLOOD TUBE #4 0 (0); SUPERNATE COLOR TUBE #1 CLEAR (CLEAR); SUPERNATE COLOR TUBE #2 CLEAR (CLEAR); SUPERNATE COLOR TUBE #3 CLEAR (CLEAR); SUPERNATE COLOR TUBE #4 CLEAR (CLEAR); WBC TUBE #4 3 /MM3 (0-10)
[2017-03-25 19:05] LABS: CSF LYMPHOCYTES 33 %; CSF MONOCYTES 67 %; CSF NEUTROPHILS 0 %
[2017-03-25] MEDS ORDERED: LORazepam 2 MG/ML VIAL IV PUSH PRN (20:00)
[2017-03-25 20:30] VITALS: BP 136/74; PULSE 94; RESP 20; TEMP 99.3; O2SAT 94
[2017-03-25] MEDS: DOCUSATE SODIUM 50 MG/SENNA 8.6 MG TAB PO SCH (21:00)
[2017-03-25] MEDS: TIMOLOL MALEATE 0.25% OPHT SOLN 5 ML BTL LEFT EYE SCH (21:00)
[2017-03-25] MEDS: SODIUM CHLORIDE 0.9% FLUSH 10 ML FLUSH IV FLUSH SCH (21:00)
--- NOTE | 2017-03-25 23:32 | EKG ---
Date Performed: 03/25/2017 Time Performed: 11:45:44 PTAGE: 52 years EKG: SINUS TACHYCARDIA INCOMPLETE RIGHT BUNDLE BRANCH BLOCK POSSIBLE ANTERIOR MYOCARDIAL INFARCT ION ABNORMAL RHYTHM ECG NO PREVIOUS TRACING DOCTOR: Fritz Trinidad Interpretating Date/Time 03/25/2017 23:31:09
[2017-03-26] VITALS (8 sets, daily range): BP systolic 124–131; BP diastolic 69–79; PULSE 70–89; RESP 17–20; TEMP 98–98.8; O2SAT 95–96
[2017-03-26] MEDS: DOCUSATE SODIUM 50 MG/SENNA 8.6 MG TAB PO SCH ×2 (09:00→20:44)
[2017-03-26] MEDS: SODIUM CHLORIDE 0.9% FLUSH 10 ML FLUSH IV FLUSH SCH ×2 (09:00→20:49)
[2017-03-26] MEDS: TIMOLOL MALEATE 0.25% OPHT SOLN 5 ML BTL LEFT EYE SCH ×2 (09:27→20:49)
[2017-03-26] MEDS: MULTIVITAMINS/MINERALS THERAPEUTIC TAB PO SCH (09:27)
[2017-03-26 11:39] LABS: AUTOMATED NEUTROPHIL # 10.3 TH/MM3 (1.8-7.7); BASOPHIL % 0.1 % (0.0-2.0); EOSINOPHIL % 0.2 % (0.0-4.0); HEMATOCRIT 40.3 % (39.0-51.0); HEMO FLAGS DIFF FINAL; LYMPH % 9.5 % (9.0-44.0); LYMPHOCYTE # 1.2 TH/MM3 (1.0-4.8); MEAN CELL VOLUME 84.1 FL (80.0-100.0); MEAN CORPUSCULAR HEMOGLOBIN 28.8 PG (27.0-34.0); MEAN CORPUSCULAR HGB CONC 34.2 % (32.0-36.0); MONO % 6.5 % (0.0-8.0); NEUT % 83.7 % (16.0-70.0); PLATELET COUNT 154 TH/MM3 (150-450); RED CELL DISTRIBUTION WIDTH 13.6 % (11.6-17.2); WHITE BLOOD COUNT 12.3 TH/MM3 (4.0-11.0)
[2017-03-26] MEDS ORDERED: GADODIAMIDE PF 287 MG/ML 20 ML VIAL (for RAD MRI) IVCONTRAST ONE (11:39)
[2017-03-26 11:49] LABS: APTT (PATIENT) 29.2 SEC (24.3-30.1)
[2017-03-26 11:59] LABS: BICARBONATE 22.8 MEQ/L (21.0-32.0); POTASSIUM 3.1 MEQ/L (3.5-5.1)
[2017-03-26] MEDS ORDERED: ZOLPIDEM TARTRATE 5 MG TAB PO PRN (12:00)
--- NOTE | 2017-03-26 12:25 | RADRPT ---
EXAM DATE/TIME: 03/26/2017 11:15 [facility] COMPARISON: CT BRAIN W/O CONTRAST, March 25, 2017, 12:02. INDICATIONS : New onset of seizures with head trauma. CONTRAST: 20 cc Omniscan (gadodiamide) IV MEDICAL HISTORY : None. SURGICAL HISTORY : Tonsillectomy. Inguinal hernia repair. Retina repair. ENCOUNTER: Initial ACUITY: 1 day PAIN SCORE: 0/10 LOCATION: cranial TECHNIQUE: Multiplanar, multisequence MRI of the brain was performed both prior to and following the administrat ion of paramagnetic contrast. FINDINGS: CEREBRUM: The ventricles are normal for age. No evidence of midline shift, mass lesion, hemorrhage or acute in farction. No extraaxial fluid collections are seen. The pituitary gland and suprasellar cistern are normal in configuration. WHITE MATTER: On the flair weighted images there are multiple small punctate areas of increased signal noted in the white matter on the flair weighted images. POSTERIOR FOSSA: The cerebellum and brainstem are intact. The 4th ventricle is midline. The cerebellopontine angle is unremarkable. The cerebellar tonsils are normal in position. DIFFUSION IMAGING: No focal areas of restricted diffusion are seen. No evidence of acute infarction. EXTRACRANIAL: The visualized portions of the orbits and paranasal sinuses are unremarkable. POST-CONTRAST: No abnormal areas of parenchymal or dural enhancement. No evidence of blood-brain barrier breakdown. CONCLUSION: 1. No acute hemorrhage, mass or infarction. 2. Mild chronic small vessel ischemic change. Derik Prabhakar MD on March 26, 2017 at 12:21 Board Certified Radiologist. This report was verified electronically.
[2017-03-26] MEDS ORDERED: levETIRAcetam 500 MG TAB PO ONE (12:30)
[2017-03-26] MEDS: ARIPiprazole 10 MG TAB PO SCH (13:08)
[2017-03-26] MEDS: NS + KCL 20 MEQ INJ 1,000 ML IV SCH (13:14)
--- NOTE | 2017-03-26 13:54 | HHI.FF ---
Face to Face Verification Diagnosis: (1) Legally blind (2) Encephalopathy (3) Seizure Home Health Nursing Order: Medical education Signs/symptoms of disease process Medication education-adverse effect Wound care and dressing changes Nursing assessment with vital signs I have seen patient Felix Yu on 03/26/17. My clinical findings support the need for the requested home health care services because: Limited ability to care for self High risk of falls I certify that my clinical findings support that this patient is homebound because: Unsafe to leave home unassisted Unable to use public transportation Bailey Giraldo Mar 26, 2017 13:54
--- NOTE | 2017-03-26 14:08 | HHI.PR ---
Subjective Remarks Written by Bailey Giraldo, acting as scribe for Dr. Morrison on 03/26/17 at 14:07. Follow up on patient with new onset seizures. Patient seen and examined. s/p LP. No seizure activity reported today. Started on Keppra. Patient denies any headache or other pain. Patient reports he is doing fine. Family at bedside. All questions addressed and answered extensively. Objective Vitals Vital Signs Date Time Temp Pulse Resp B/P (MAP) Pulse Ox O2 Delivery O2 Flow Rate FiO2 03/26/17 13:09 98.5 73 18 124/78 (93) 96 03/26/17 09:29 95 03/26/17 08:20 98.8 83 18 128/69 (88) 95 03/26/17 04:00 98.0 81 19 128/77 (94) 96 03/26/17 00:00 98.8 89 20 130/76 (94) 95 03/25/17 20:30 99.3 94 20 136/74 (94) 94 03/25/17 17:30 99.3 98 18 127/75 (92) 100 03/25/17 16:35 162/86 (111) 99 15.00 I/O 03/25/17 03/25/17 03/25/17 03/26/17 03/26/17 03/26/17 07:00 15:00 23:00 07:00 15:00 23:00 Intake Total 210 ml 550 ml Output Total 900 ml Balance 210 ml -350 ml Intake Oral 0 ml 550 ml IV Total 210 ml Output Urine Total 900 ml # Voids 1 # Bowel Movements 0 0 Result Diagram: 03/26/17 1026 03/26/17 1026 Imaging Last Impressions Brain MRI 03/26/17 0000 Signed Impressions: Service Date/Time: Sunday, March 26, 2017 11:15 - CONCLUSION: 1. No acute hemorrhage, mass or infarction. 2. Mild chronic small vessel ischemic change. Derik Prabhakar MD Cervical Spine CT 03/25/17 1141 Signed Impressions: Service Date/Time: February 12:02 - CONCLUSION: Negative trauma CT. Derik Prabhakar MD Lumbar Puncture Fluoroscopy 03/25/17 0000 Signed Impressions: Service Date/Time: February 16:54 - CONCLUSION: Uncomplicated fluoroscopically guided lumbar puncture with pressures as above. Burak Pyle MD Head CT 03/25/17 0000 Signed Impressions: Service Date/Time: February 12:02 - CONCLUSION: Unremarkable noncontrast exam. Derik Prabhakar MD Objective Remarks GENERAL: This is a well-nourished, well-developed patient, in no apparent distress. Lying in hospital bed. Family at bedside. SKIN: Warm and dry. HEAD: Normocephalic. (+)closed laceration over anterior forehead with sutures intact, surrounding ecchymosis. Legally blind. EYES: Extraocular motions intact. No scleral icterus. No injection or drainage. ENT: Nose without bleeding, purulent drainage. (+)tongue contusion, no active bleeding. Airway patent. (+)Nasal contusion. NECK: Trachea midline. No lymphadenopathy. Supple, nontender, no meningeal signs. CARDIOVASCULAR: Regular rate and rhythm without murmurs, gallops, or rubs. RESPIRATORY: Clear to auscultation. Breath sounds equal bilaterally. No wheezes , rales, or rhonchi. GASTROINTESTINAL: Abdomen soft, non-tender, nondistended. No hepato-splenomegaly , or palpable masses. No guarding. MUSCULOSKELETAL: Extremities without clubbing, cyanosis, or edema. No joint tenderness, effusion, or edema noted. No calf tenderness. NEUROLOGICAL: Awake. Able to move all extremities. Nonfocal. Normal speech. Medications and IVs Current Medications Medications (Trade) Dose Ordered Sig/Hayley Route Start Time Stop Time Status Last Admin (NS Flush) 2 ml UNSCH PRN IVF 03/25/17 11:45 03/25/17 12:25 (NS Flush) 2 ml BID IV FLUSH 03/25/17 21:00 (Tylenol) 650 mg Q4H PRN PO 03/25/17 13:30 (Zofran Inj) 4 mg Q6H PRN IVP 03/25/17 13:30 (Narcan Inj) 0.4 mg UNSCH PRN IV PUSH 03/25/17 13:30 (Lizbeth-Colace) 1 tab BID PO 03/25/17 21:00 (Milk Of Magnesia Liq) 30 ml Q12H PRN PO 03/25/17 13:30 (Senokot) 17.2 mg Q12H PRN PO 03/25/17 13:30 (Dulcolax Supp) 10 mg DAILY PRN RECTAL 03/25/17 13:30 (Lactulose Liq) 30 ml DAILY PRN PO 03/25/17 13:30 Potassium Chloride/Sodium Chloride 1,000 ml @ 42 mls/hr [id number] IV 03/25/17 14:30 03/26/17 13:14 (Timoptic 0.25% Opth Soln) 1 drop BID LEFT EYE 03/25/17 21:00 03/26/17 09:27 (Theragran M Tab) 1 tab DAILY PO 03/26/17 09:00 03/26/17 09:27 (Ativan Inj) 1 mg Q15M PRN IV PUSH 03/25/17 20:00 (Keppra) 500 mg Q12HR PO 03/26/17 21:00 (Abilify) 10 mg DAILY PO 03/26/17 14:00 03/26/17 13:08 (Ambien) 5 mg HS PRN PO 03/26/17 12:00 A/P Assessment and Plan 52-year-old with a past medical history significant for glaucoma, macular degeneration, legal blindness and schizophrenia who presents to [facility] ED after having a seizure. New-onset seizure - No recurrence in seizure activity - CT of the head personally reviewed and unremarkable - Neurology following, appreciate recommendations. - LP completed, CSF unremarkable - Given loading dose of Keppra and started on by mouth Keppra 500 twice a day. Continue. - Continuous cardiac monitoring - Neuro checks every 4 - EEG showing mild to moderate background slowing consistent with encephalopathic process, no epileptiform form features. - MRI brain without acute hemorrhage, mass or infarction - Seizure precautions - Fall precautions - Ativan when necessary seizure activity Forehead laceration s/p closed head trauma - CT of the cervical spine personally reviewed and unremarkable - Status post suturing with absorbable sutures - Monitor wound healing Leukocytosis - Suspect reactive - CSF not indicative of meningitis - Trending down - monitor Hypokalemia - Replete - check mag level - A.m. labs to monitor response Legal blindness Glaucoma Macular degeneration - Stable - Continue home eyedrops Schizophrenia - Resume home dose of Abilify DVT prophylaxis - bilateral SCD/SELENA hose This note was transcribed by ninoska Giraldo. I, Dr. Jacky Morrison personally performed the history, physical exam, and medical decision making; and confirmed the accuracy of the information in the transcribed note. Authenticated by Dr. Jacky Morrison on 03/26/17 at 14:12. Bailey Giraldo Mar 26, 2017 14:08 Jacky Morrison MD Mar 26, 2017 14:13
[2017-03-26] MEDS ORDERED: POTASSIUM CHLORIDE 20 MEQ CONTROLLED RELEASE TAB PO ONE (15:00)
--- NOTE | 2017-03-26 17:15 | HHI.PR ---
Review/Management Diagnosis New onset seizures Schizophrenia Legally blind Plan Continue Keppra 500mg Q12h If no seizures over night, if back to baseline cognitive and motor function, may be released from hospital tomorrow Follow up neurology outpatient Seizure precautions I discussed the case with patient and his mother Diagnosis/Plan: Subjective Subjective Comments No reported seizures EEG revealed background slowing with no evidence of an ictal activity Mother at bed side Patient with no new complaints MRI brain is unremarkable for an acute intracranial abnormality CSF analysis is unremarkable for an infectious process Active Medications Current Medications Medications (Trade) Dose Ordered Sig/Hayley Route Start Time Stop Time Status Last Admin (NS Flush) 2 ml UNSCH PRN IVF 03/25/17 11:45 03/25/17 12:25 (NS Flush) 2 ml BID IV FLUSH 03/25/17 21:00 (Tylenol) 650 mg Q4H PRN PO 03/25/17 13:30 (Zofran Inj) 4 mg Q6H PRN IVP 03/25/17 13:30 (Narcan Inj) 0.4 mg UNSCH PRN IV PUSH 03/25/17 13:30 (Lizbeth-Colace) 1 tab BID PO 03/25/17 21:00 (Milk Of Magnesia Liq) 30 ml Q12H PRN PO 03/25/17 13:30 (Senokot) 17.2 mg Q12H PRN PO 03/25/17 13:30 (Dulcolax Supp) 10 mg DAILY PRN RECTAL 03/25/17 13:30 (Lactulose Liq) 30 ml DAILY PRN PO 03/25/17 13:30 Potassium Chloride/Sodium Chloride 1,000 ml @ 42 mls/hr [id number] IV 03/25/17 14:30 03/26/17 13:14 (Timoptic 0.25% Opth Soln) 1 drop BID LEFT EYE 03/25/17 21:00 03/26/17 09:27 (Theragran M Tab) 1 tab DAILY PO 03/26/17 09:00 03/26/17 09:27 (Ativan Inj) 1 mg Q15M PRN IV PUSH 03/25/17 20:00 (Keppra) 500 mg Q12HR PO 03/26/17 21:00 (Abilify) 10 mg DAILY PO 03/26/17 14:00 03/26/17 13:08 (Ambien) 5 mg HS PRN PO 03/26/17 12:00 Allergies Allergies Coded Allergies No Known Allergies (Unverified01/10/17) Review of Systems All other ROS: ROS reviewed as documented in chart Exam I&O / VS 03/26/17 03/26/17 03/27/17 15:00 23:00 07:00 Intake Total 120 ml Output Total 500 ml Balance -380 ml Intake Oral 120 ml Output Urine Total 500 ml Vital Signs Date Time Temp Pulse Resp B/P (MAP) Pulse Ox O2 Delivery O2 Flow Rate FiO2 03/26/17 16:50 98.6 86 18 131/79 (96) 95 03/26/17 13:09 98.5 73 18 124/78 (93) 96 03/26/17 09:29 95 03/26/17 08:20 98.8 83 18 128/69 (88) 95 03/26/17 04:00 98.0 81 19 128/77 (94) 96 03/26/17 00:00 98.8 89 20 130/76 (94) 95 03/25/17 20:30 99.3 94 20 136/74 (94) 94 03/25/17 17:30 99.3 98 18 127/75 (92) 100 General: Alert and Oriented, No acute distress Eye: Vision unchanged Respiratory: Lungs CTA, Non-labored respirations Cardiology: Normal rate, No murmur Neurologic: Alert, Oriented, No focal defects, Other (neurologic exam is unchanged) Objective Radiology Results Last 72 hours Impressions Brain MRI 03/26/17 0000 Signed Impressions: Service Date/Time: Sunday, March 26, 2017 11:15 - CONCLUSION: 1. No acute hemorrhage, mass or infarction. 2. Mild chronic small vessel ischemic change. Derik Prabhakar MD Cervical Spine CT 03/25/17 1141 Signed Impressions: Service Date/Time: February 12:02 - CONCLUSION: Negative trauma CT. Derik Prabhakar MD Lumbar Puncture Fluoroscopy 03/25/17 0000 Signed Impressions: Service Date/Time: February 16:54 - CONCLUSION: Uncomplicated fluoroscopically guided lumbar puncture with pressures as above. Burak Pyle MD Head CT 03/25/17 0000 Signed Impressions: Service Date/Time: February 12:02 - CONCLUSION: Unremarkable noncontrast exam. Derik Prabhakar MD Micro and Labs Laboratory Tests Test 03/26/17 10:26 White Blood Count 12.3 Red Blood Count 4.80 Hemoglobin 13.8 Hematocrit 40.3 Mean Corpuscular Volume 84.1 Mean Corpuscular Hemoglobin 28.8 Mean Corpuscular Hemoglobin Concent 34.2 Red Cell Distribution Width 13.6 Platelet Count 154 Mean Platelet Volume 8.3 Neutrophils (%) (Auto) 83.7 Lymphocytes (%) (Auto) 9.5 Monocytes (%) (Auto) 6.5 Eosinophils (%) (Auto) 0.2 Basophils (%) (Auto) 0.1 Neutrophils # (Auto) 10.3 Lymphocytes # (Auto) 1.2 Monocytes # (Auto) 0.8 Eosinophils # (Auto) 0.0 Basophils # (Auto) 0.0 CBC Comment DIFF FINAL Differential Comment Activated Partial Thromboplast Time 29.2 Blood Urea Nitrogen 9 Creatinine 0.71 Random Glucose 113 Calcium Level 8.6 Sodium Level 133 Potassium Level 3.1 Chloride Level 101 Carbon Dioxide Level 22.8 Anion Gap 9 Estimat Glomerular Filtration Rate 116 Magnesium Level 2.2 Date/Time Source Procedure Growth Status 03/25/17 17:07 Cerebral Spinal Fluid Lumbar Puncture Gram Stain - Final Resulted 03/25/17 17:07 Cerebral Spinal Fluid Lumbar Puncture CSF Culture - Preliminary NO GROWTH IN 24 HOURS. Resulted Norm Navarrete MD Mar 26, 2017 17:15
[2017-03-26] MEDS: levETIRAcetam 500 MG TAB PO SCH (20:44)
[2017-03-27] VITALS: BP 130/67; PULSE 80; RESP 18; TEMP 98.8; O2SAT 94
[2017-03-27 04:00] VITALS: BP 123/76; PULSE 74; RESP 18; TEMP 97.2; O2SAT 95
[2017-03-27 08:00] VITALS: BP 131/75; PULSE 78; RESP 16; TEMP 98.1; O2SAT 95
[2017-03-27 08:01] VITALS: PULSE 77
[2017-03-27] MEDS: SODIUM CHLORIDE 0.9% FLUSH 10 ML FLUSH IV FLUSH SCH (08:28)
[2017-03-27] MEDS: MULTIVITAMINS/MINERALS THERAPEUTIC TAB PO SCH (08:29)
[2017-03-27] MEDS: levETIRAcetam 500 MG TAB PO SCH (08:29)
[2017-03-27] MEDS: ARIPiprazole 10 MG TAB PO SCH (08:29)
[2017-03-27] MEDS: DOCUSATE SODIUM 50 MG/SENNA 8.6 MG TAB PO SCH (08:29)
[2017-03-27] MEDS: TIMOLOL MALEATE 0.25% OPHT SOLN 5 ML BTL LEFT EYE SCH (08:32)
[2017-03-27] MEDS ORDERED: LEVE500 PO (09:53)
--- NOTE | 2017-03-27 09:59 | HHI.DCPOC ---
Discharge Care Plan Diagnosis: (1) Forehead laceration (2) Closed head injury (3) Seizure (4) Legally blind (5) Tongue injury (6) Schizophrenia Goals to Promote Your Health * To prevent worsening of your condition and complications * To maintain your health at the optimal level Directions to Meet Your Goals Please do not drive Please do not swim or soak in tub/hot tub Take your medications as prescribed Follow your dietary instruction Follow activity as directed Keep your appointments as scheduled Take your immunizations and boosters as scheduled If your symptoms worsen call your PCP, if no PCP go to Urgent Care Center or Emergency Room Smoking is Dangerous to Your Health. Avoid second hand smoke Call the 24-hour hour crisis hotline for domestic abuse at Bailey Giraldo Mar 27, 2017 09:59
[2017-03-27] MEDS ORDERED: PERI0.126 SWISH-SPIT (10:22)
[2017-03-27] MEDS ORDERED: MAGICADU2 SWISH-SWAL (10:23)
--- NOTE | 2017-03-27 10:39 | HHI.DS ---
Discharge Summary Admission Date Mar 25, 2017 at 14:09 Discharge Date: Mar 27, 2017 Admitting Diagnosis new onset seizure, forehead laceration, schizophrenia, legally blind (1) Seizure ICD Code: R56.9 - Unspecified convulsions (2) Schizophrenia ICD Code: F20.9 - Schizophrenia, unspecified Status: Acute (3) Tongue injury ICD Code: S09.93XA - Unspecified injury of face, initial encounter Status: Acute (4) Forehead laceration ICD Code: S01.81XA - Laceration without foreign body of other part of head, initial encounter (5) Legally blind ICD Code: H54.8 - Legal blindness, as defined in [place] (6) Closed head injury ICD Code: S09.90XA - Unspecified injury of head, initial encounter Procedures None Brief History - From Admission Written by Bailey Giraldo, acting as scribe for Dr. Morrison on 03/25/17 at 14:14. This is a 52-year-old with a past medical history significant for glaucoma, macular degeneration, legal blindness and schizophrenia who presents to [facility] ED after having a seizure. Patient has no previous history of seizure disorder. Reportedly, patient was participating in a blind class when he had a tonic-clonic seizure injuring his head as well as biting his tongue. When the EMS arrived, patient was found to be post ictal. He had urinary incontinence and possible stool incontinence. At present, patient's only complaint is being tired. He reports being completely blind in the left eye with some vision in the right. He denies any recent illness. He denies any fever or chills. Denies any chest pain or shortness of breath. He denies any nausea, vomiting or abdominal pain. He denies any urinary difficulties, diarrhea or constipation. Patient takes Abilify and Ambien at home. Family member at the bedside is concerned the patient may have inadvertently taken his Ambien this morning in place of his Abilify. CBC/BMP: 03/26/17 1026 03/26/17 1026 Significant Findings Laboratory Tests Test 03/25/17 12:00 03/25/17 15:30 03/25/17 17:07 03/26/17 10:26 White Blood Count 19.1 TH/MM3 (4.0-11.0) 12.3 TH/MM3 (4.0-11.0) Neutrophils (%) (Auto) 85.0 % (16.0-70.0) 83.7 % (16.0-70.0) Neutrophils # (Auto) 16.3 TH/MM3 (1.8-7.7) 10.3 TH/MM3 (1.8-7.7) Monocytes # (Auto) 1.1 TH/MM3 (0-0.9) Random Glucose 126 MG/DL (74-106) 113 MG/DL (74-106) Alkaline Phosphatase 133 U/L (45-117) Sodium Level 134 MEQ/L (136-145) 133 MEQ/L (136-145) Potassium Level 3.3 MEQ/L (3.5-5.1) 3.1 MEQ/L (3.5-5.1) Carbon Dioxide Level 20.9 MEQ/L (21.0-32.0) Estimat Glomerular Filtration Rate 81 ML/MIN (>89) CSF RBC (Tube 4) 3 /MM3 (NONE) CSF Total Protein 46.8 MG/DL (15.0-45.0) Imaging Last Impressions Brain MRI 03/26/17 0000 Signed Impressions: Service Date/Time: Sunday, March 26, 2017 11:15 - CONCLUSION: 1. No acute hemorrhage, mass or infarction. 2. Mild chronic small vessel ischemic change. Derik Prabhakar MD Cervical Spine CT 03/25/17 1141 Signed Impressions: Service Date/Time: February 12:02 - CONCLUSION: Negative trauma CT. Derik Prabhakar MD Lumbar Puncture Fluoroscopy 03/25/17 0000 Signed Impressions: Service Date/Time: February 16:54 - CONCLUSION: Uncomplicated fluoroscopically guided lumbar puncture with pressures as above. Burak Pyle MD Head CT 03/25/17 0000 Signed Impressions: Service Date/Time: February 12:02 - CONCLUSION: Unremarkable noncontrast exam. Derik Prabhakar MD PE at Discharge General: No acute distress. HEENT: Forehead scalp laceration bandaged. Heart: Regular rate and rhythm. No murmur. Lungs: Clear to auscultation bilaterally. No wheezes, rales, or rhonchi. Breathing is nonlabored. Abdomen: Soft, nontender, nondistended. Extremities: No lower extremity edema. Psych: Alert and oriented. Pt update on day of discharge The patient has no complaints at this time. Headache has resolved. No chest pain or dyspnea. He was ready to go home. Plan was discussed with the patient and his mother at bedside. Hospital Course The patient was evaluated for apparent new onset seizure. He had a fall with laceration of his forehead. The laceration was repaired in the ER. Neurology was consulted. Patient was started on Keppra. He did have another seizure in the emergency department that was witnessed by ER staff. Lumbar puncture was done to evaluate for possible meningitis/encephalitis, and was unremarkable. The patient did not have any further seizure activity during the hospitalization. He was cleared for discharge by neurology. The patient and his mother stated that they would be having a friend, who is a nurse, stay with them for the next few days. Pt Condition on Discharge: Stable Discharge Disposition: Discharge Home Discharge Time: > 30 minutes Discharge Instructions DIET: Follow Instructions for: Heart Healthy Diet Activities you can perform: Shower Only-No Bath, See Additionl Instruction Activities to Avoid: Bathing, Driving Other Activity Instructions: Showers only Follow up Referrals: Neurology - 1 Week with Norm Navarrete MD PCP Follow-up - 1 Week New Medications: Chlorhexidine Gluconate (Mouth) Liq (Peridex Liq) 0.12% Soln 15 ML SWISH-SPIT BID for Infection, #473 ML 0 Refills Oapozgoq-Njvdxakndxmqjtl-Piyrrowmr Liq (Magic Mouthwash Adult Liq) 120 Ml Susp 10 ML SWISH-SWAL ACHS for Mouth sores, #120 ML 0 Refills Each 5mL contains: Nystatin 200,000units, Diphenhydramine 4.25mg, Viscous Lidocaine 10mg, Go syrup 0.8 mL Levetiracetam (Keppra) 500 Mg Tab 500 MG PO Q12HR for Seizure Control for 30 Days, #60 TAB Continued Medications: Aripiprazole (Abilify) 10 Mg Tab 10 MG PO DAILY for health, #30 TAB 2 Refills Multiple Vitamins W/ Minerals (Preservision Areds) 1 Tab 1 TAB PO DAILY for Nutritional Supplement, TAB 0 Refills Timolol Maleate (Ophth) (Timolol Maleate) 0.25 % Kimber 1 DROP LEFT EYE BID Zolpidem (Ambien) 5 Mg Tab 5 MG PO HS PRN for INSOMNIA, TAB 0 Refills Jacky Morrison MD Mar 27, 2017 10:39
[2017-03-27 11:54] LABS: BICARBONATE 23.2 MEQ/L (21.0-32.0); POTASSIUM 3.5 MEQ/L (3.5-5.1)
[2017-03-27] MEDS: NS + KCL 20 MEQ INJ 1,000 ML IV SCH (12:58)
== END 2017-03-27 14:25 | disposition home or self-care (01) | DRG 101 ==
LOC: NEPE 11:30 → NEDA 14:09 → OBSVTOIN 14:09 → N05B 17:25
PROVIDERS: ADMIT Family Medicine; ATTEND Family Medicine
PROC: 009U3ZX Drainage of Spinal Canal, Percutaneous Approach, Diagnostic (ICD-10-PCS; principal; 2017-03-25)
PROC: B01B1ZZ Fluoroscopy of Spinal Cord using Low Osmolar Contrast (ICD-10-PCS; 2017-03-25)
PROC: 0HQ0XZZ Repair Scalp Skin, External Approach (ICD-10-PCS; 2017-03-25)
DX: G40.89 Other seizures (principal); F20.9 Schizophrenia, unspecified; E87.6 Hypokalemia; S01.81XA Laceration without foreign body of other part of head, initial encounter; D72.829 Elevated white blood cell count, unspecified; H40.9 Unspecified glaucoma; G47.00 Insomnia, unspecified; H54.8 Legal blindness, as defined in USA; H35.30 Unspecified macular degeneration
CPT/HCPCS: 62270; 70450; 70553; 72125; 77003; 80048; 80053; 82945; 83615; 83735; 84157; 85025; 85610; 85730; 87070; 87205; 89051; 93005; 95819; A9579; J1953; J2060; J3010; J3480